=== PATIENT | female | born 1980 | race Caucasian/White ===

== ENCOUNTER 2020-10-14 18:26 | Emergency (ER) | payer OTHER, SELFPAY ==
--- NOTE | 2020-10-14 18:37 | ED.FEMALEGU ---
HPI - Female Genitourinary General Chief complaint: Urogenital-Female Stated complaint: UTI Time Seen by Provider: 10/14/20 18:32 Source: patient and RN notes reviewed Limitations: no limitations History of Present Illness HPI Narrative: This is a 39-year-old female the presents to urgent care with complaints of frequency, urgency, and dysuria that developed this morning. Patient has a history of urinary tract infection has had to this year. She also complains of abdominal pain but she notes this is typical for her urinary tract infection. The patient denies SOB, CP, palpitation, extremity numbness, lightheadedness, dizziness, constipation, diarrhea, chills, hematuria, incontinence or fever. MD elicited complaint: dysuria and UTI Related Data Allergies Allergy/AdvReac Type Severity Reaction Status Date / Time No Known Allergies Allergy Verified 10/14/20 18:32 Review of Systems Review of Systems: Narrative: A 14 organ system Review of Systems was performed and pertinent positives included in the HPI, otherwise remaining ROS is negative. All systems reviewed & are unremarkable except as noted in HPI and below PMFSH Family History Family History (Updated 06/17/16 @ 10:47 by DOCTOR UNKNOWN) Father Family history of type 2 diabetes mellitus Social History Social History Smoking status: Former smoker Smoking end date: 03/28/13 Alcohol intake: current Gender identity (if verbalized by the patient): Female Exam Narrative: Exam Narrative: GENERAL: This is a well-nourished, well-developed patient, in no apparent distress. HEAD: normocephalic, atraumatic. EYES: PERRL. Sclera clear/white. Vision is grossly intact. EARS: External ears normal, auditory canals clear and without drainage, TMs normal without perforation. Hearing grossly intact. NOSE: External nose normal with no obvious nasal discharge, nares without redness, no rhinorrhea. THROAT: Mucous membranes moist, posterior pharynx clear. NECK: Neck supple, non-tender without lymphadenopathy, masses or thyromegaly. CARDIOVASCULAR: Regular rate and rhythm without murmurs, gallops, or rubs. RESPIRATORY: Clear to auscultation. Breath sounds equal bilaterally. No wheezes, rales, or rhonchi. GASTROINTESTINAL: Abdomen soft, non-tender, nondistended. Bowel sounds are active. No hepato-splenomegaly, or palpable masses. No guarding. SKIN: warm, intact with no suspicious lesions or rash, good texture and turgor. NEURO: awake, alert, and oriented to person, place and time. There were no obvious focal neurologic abnormalities. Steady gait EXTREMITIES: Normal range of motion. No edema. No calf tenderness. Negative Homans sign bilaterally. BACK: Nontender without deformity or crepitance. No flank tenderness. Course Vital Signs Vital signs: Vital Signs Temperature 98.8 F 10/14/20 18:43 Pulse Rate 99 10/14/20 18:43 Respiratory Rate 18 10/14/20 18:43 Blood Pressure 140/89 10/14/20 18:43 Pulse Oximetry 100 10/14/20 18:43 Temperature 98.8 F 10/14/20 18:43 Pulse Rate 99 10/14/20 18:43 Respiratory Rate 18 10/14/20 18:43 Blood Pressure 140/89 10/14/20 18:43 Pulse Oximetry 100 10/14/20 18:43 MDM - Female Genitourinary Differential Diagnosis Differential diagnosis: Likely urinary tract infection, bacterial vaginosis and vaginitis Lab Data Attestation: I reviewed the patient's lab results. Labs: Urine Glucose Negative Reference Range: Negative Urine Bilirubin Negative Reference Range: Negative Urine Ketone Negative Reference Range: Negative Urine Specific [place] 1.025 Reference Range:1.001-1.035 Urine Blood Negative
[2020-10-14 18:43] VITALS: BP 140/89; PULSE 99; RESP 18; TEMP 37.1; O2SAT 100
== END 2020-10-14 19:02 | disposition home or self-care (01) ==
LOC: EXPTROY 18:38
PROVIDERS: Emergency Provider Nurse Practitioner
DX: N30.00 Acute cystitis without hematuria (principal); Z87.891 Personal history of nicotine dependence
CPT/HCPCS: 81003; 87086; 99213; G0463

== ENCOUNTER 2021-05-10 14:02 | Emergency (ER) | payer OTHER, SELFPAY ==
[2021-05-10 14:16] VITALS: BP 134/92; PULSE 108; RESP 18; TEMP 36.7; O2SAT 98
--- NOTE | 2021-05-10 14:40 | ED.FEMALEGU ---
HPI - Female Genitourinary General Chief complaint: Urogenital-Female Stated complaint: Possible UTI Time Seen by Provider: 05/10/21 14:28 Source: patient and RN notes reviewed Mode of arrival: ambulatory Limitations: no limitations History of Present Illness HPI Narrative: Patient presents today complaining of dysuria, frequency, urgency, lower abdominal cramping. Symptoms began this morning. Denies hematuria, fever, nausea, vomiting, back pain. Denies any recent antibiotics. She has tried no medication for symptoms prior to arrival. MD elicited complaint: UTI Related Data Home Medications Medication Instructions Recorded Confirmed liraglutide (weight loss) [Saxenda] 1.2 mg SUBCUT DAILY 05/10/21 05/10/21 Allergies Allergy/AdvReac Type Severity Reaction Status Date / Time No Known Allergies Allergy Verified 05/10/21 14:23 Review of Systems Review of Systems: CONSTITUTIONAL: Denies body aches, fever, chills, or sweats. EYES: Denies visual changes, redness, or discharge. ENT: Denies rhinorrhea, congestion, sore throat, or otalgia. CARDIOVASCULAR: Denies chest pain, palpitations, or edema. RESPIRATORY: Denies cough or dyspnea. GASTROINTESTINAL: Denies abdominal pain, nausea, vomiting, or diarrhea.+ Lower abdominal cramping GENITOURINARY: + Dysuria, frequency, urgency. Denies hematuria SKIN: Denies rash, itching, or wounds. MUSCULOSKELETAL: Denies back pain, joint pain, or myalgia. NEUROLOGIC: Denies headache, numbness, tingling, or weakness. PSYCH: Denies depression or anxiety. PMFSH Family History Family History Father Family history of type 2 diabetes mellitus Social History Social History Smoking status: Former smoker Smoking end date: 03/28/13 Alcohol intake: current Gender identity (if verbalized by the patient): Female Comments At time of signature, I have reviewed and agree with nursing past medical, surgical, social and family history unless otherwise noted. Please see nursing chart for further information. There is no relevant family history pertinent to the presenting complaint Exam Narrative: GENERAL: Well-appearing, well-nourished, and in no acute distress. HEAD: Normocephalic, atraumatic. EYES: EOMI. No redness or drainage. Conjunctivae normal. ENT: Mucous membranes pink and moist. NECK: Normal AROM. Supple. No lymphadenopathy. CHEST: No respiratory distress. Clear to auscultation. HEART: Regular rate and rhythm. No murmur appreciated. Normal peripheral pulses. ABDOMEN: Soft, nontender, nondistended, normal active bowel sounds.-CVAT MUSCULOSKELETAL: No bony tenderness. EXTREMITIES: Normal range of motion. No edema. SKIN: Warm, dry, no rash. Capillary refill normal. Normal skin turgor. NEURO: No focal deficits. Alert and oriented x3. Gait steady. PSYCH: Normal affect. No signs of depression or anxiety. Course Course Level of Care: Express Care Visit Vital Signs Vital signs: Vital Signs Temperature 98.1 F 05/10/21 14:16 Pulse Rate 108 H 05/10/21 14:16 Respiratory Rate 18 05/10/21 14:16 Blood Pressure 134/92 H 05/10/21 14:16 Pulse Oximetry 98 05/10/21 14:16 Temperature 98.1 F 05/10/21 14:16 Pulse Rate 108 H 05/10/21 14:16 Respiratory Rate 18 05/10/21 14:16 Blood Pressure 134/92 H 05/10/21 14:16 Pulse Oximetry 98 05/10/21 14:16 Reviewed. Pt has been instructed to follow up with her PCP regarding her elevated blood pressure today. MDM - Female Genitourinary Differential Diagnosis Differential diagnosis: Likely urinary tract infection, vaginitis and other (Pyelonephritis, interstitial cystitis) Lab Data Attestation: I reviewed the patient's lab results. Labs: Urine Glucose Negative Reference Range: Negative Urine Bilirubin Negativ
== END 2021-05-10 14:50 | disposition home or self-care (01) ==
PROVIDERS: Emergency Provider Nurse Practitioner
DX: N30.01 Acute cystitis with hematuria (principal); Z87.891 Personal history of nicotine dependence
CPT/HCPCS: 81003; 87077; 87086; 87186; 99213; G0463

== ENCOUNTER 2022-10-17 15:14 | Emergency (ER) | payer OTHER, SELFPAY ==
[2022-10-17 15:36] VITALS: BP 128/84; PULSE 89; RESP 18; TEMP 36.6; O2SAT 100
--- NOTE | 2022-10-17 15:57 | ED.FEMALEGU ---
HPI - Female Genitourinary General Chief complaint: Urogenital-Female Stated complaint: uti symptoms Time Seen by Provider: 10/17/22 15:25 Source: patient Mode of arrival: ambulatory Limitations: no limitations History of Present Illness HPI Narrative: 5-year-old female presents to [facility] with complaints of urinary frequency, urgency, pain and burning for the past 2 hours. Patient reports that she has a history of urinary tract infections. Patient denies vaginal discharge, vaginal bleeding, concern for STDs, fever, body aches, chills, nausea, vomiting, diarrhea, abdominal pains or back pains. MD elicited complaint: dysuria and UTI Onset (ago): hour(s) (2) Vaginal discharge: none Vaginal bleeding: none Urinary symptoms: Dysuria, Urgency and Frequency Exacerbating factors: none Relieving factors: none Associated symptoms: denies other symptoms Treatment prior to arrival: none Related Data Home Medications Medication Instructions Recorded Confirmed semaglutide (weight loss) 2.4 mg subcut 10/17/22 10/17/22 mg/0.75 mL subcutaneous pen injector (Augmentra) Allergies Allergy/AdvReac Type Severity Reaction Status Date / Time No Known Allergies Allergy Verified 10/17/22 15:46 Review of Systems Constitutional: Constitutional: Denies chills and Denies fatigue ENT: Denies vertigo, Denies dizziness, Denies epistaxis and Denies nasal congestion Cardiovascular: Cardiovascular: Denies chest pain Respiratory: Respiratory: Denies cough, Denies dyspnea and Denies wheezing Gastrointestinal: Gastrointestinal: Denies constipation, Denies heartburn, Denies diarrhea, Denies nausea and Denies vomiting Genitourinary: Genitourinary: Denies hematuria, Reports nocturia, Denies genital lesions, Reports dysuria, Denies pelvic pain, Denies flank pain, Denies urinary incontinence and Denies vaginal discharge Integumentary/Breasts: Skin/Breast: Denies rash Neurologic: Denies dizziness, Denies syncope and Denies headache(s) [facility] Family History Family History Father Family history of type 2 diabetes mellitus Social History Social History Smoking status: Former smoker Smoking end date: 01/01/14 Alcohol intake: current Gender identity (if verbalized by the patient): Female Comments At time of signature, I agree with nursing past medical, surgical, social and family history. There is no relevant family history pertinent to the presenting complaint. Exam Const: General: healthy appearing and no acute distress Nutritional Appearance: well nourished Orientation/consciousness: patient oriented x3 Limitations: no limitations Eyes: Conjunctivae: conjunctivae normal Neck: Neck: normal visual inspection Resp: Effort & Inspection: normal respiratory effort and not labored Auscultation: clear to auscultation bilaterally, no crackles, no rales, no rhonchi and no wheezes Cardio: Rate: regular rate Rhythm: regular rhythm Heart sounds: no murmurs GI: Inspection: non-distended GI Palp: Yes Soft to palpation, No Tenderness to palpation present (GI), No Guarding due to palpation present (GI), No Rigid due to palpation and No Palpable mass present : General: Yes bladder normal to palpation and Yes no CVA tenderness Back/Spine/Pelvis: Back: no CVA tenderness Skin: General skin exam: normal color Rashes: no rashes Wounds: no wounds Neuro: General: patient oriented x3 Speech: normal speech Gait exam (Neuro): Normal gait present Psych: Affect: normal affect Attitude: cooperative Course Course Level of Care: Express Care Visit Vital Signs Vital signs: Vital Signs Temperature 36.6 C 10/17/22 15:36 Pulse Rate 89 10/17/22 15:36 Respiratory Rate 18 10/17/22 15:36 Blood Pressure 128/84 10/17/22 15:36 Pulse Oximetry 100 10/17/22 15:36 Oxygen Delivery Room Air 10/17/22 15:36 Tem
--- NOTE | 2022-10-17 16:37 | PC.NURSE ---
1075- original pharmacy was closed. called in to Javi houser on message line
== END 2022-10-17 16:04 | disposition home or self-care (01) ==
PROVIDERS: Emergency Provider Nurse Practitioner Family
DX: N30.00 Acute cystitis without hematuria (principal); Z87.891 Personal history of nicotine dependence
CPT/HCPCS: 81003; 87077; 87086; 87186; 99213; G0463